=== PATIENT | male | born 1980 | race Caucasian/White ===

== ENCOUNTER 2019-04-25 23:41 | Emergency (ER) | payer OTHER ==
[~2019-04-25] VITALS: Ht 172.7 cm; Wt 68.0 kg
[2019-04-26] MEDS ORDERED: ALLEGRA-D 12 H1 EACH PO (03:04)
[2019-04-26] MEDS ORDERED: OSEL75CA PO (03:04)
== END 2019-04-26 03:55 | disposition home or self-care (01) ==
LOC: ER 23:41
DX: J10.1 Influenza due to other identified influenza virus with other respiratory manifestations (principal)